=== PATIENT | female | born 1955 | race Caucasian/White ===

== ENCOUNTER → 2017-06-19 | Day surgery (SDC) | payer OTHER ==
[~2017-06-19] VITALS: Ht 162.6 cm; Wt 112.1 kg
[~2017-06-19] MED LIST: BACITRACIN1 PKT TOP; BIOTIN1 M1 PO; CALCIUM CARBON600 MG PO; CARDIZEM CD (T240 MG PO; CELEBREX200 MG PO; COLACE100 MG PO; DILAUDID 2MG(HYD2 MG PO; DILTIAZEM 24HR240 MG PO; DRISDOL 5050000 UNIT PO; HYDRODIURIL12.5 MG PO; MIRALAX17 GM PO; NAPROSYN500 MG PO; NAPROXEN SODIU550 MG PO; NORCO 5-325 TA1 EACH PO; PAXIL40 M1 PO; TOPROL XL 5050 MG PO; TRAMADOL HCL50 MG PO; TYLENOL EXTRA500 MG PO; XARELTO10 MG PO
--- NOTE | ~2017-06-19 | OR ---
PATIENT'S NAME: JERRICA CARTER [facility] AGE: 62 Y [address] ROOM: [place] [id number] LOCATION: [facility] [place] ADMIT DATE: 06/19/2017 OR/Procedure Report DISCHARGE DATE: FAMILY PHYSICIAN: Jayjay Mireles MD ATTENDING PHYSICIAN: BESSIE LOPEZ SURGEON: Bessie Lopez MD FASHION SHOW DIRECTOR: Heriberto Navarro PA-C. DATE OF PROCEDURE: 06/19/2017 PREOPERATIVE DIAGNOSIS: Right intra-articular distal radius fracture with displacement, angulation and dorsal comminution. POSTOPERATIVE DIAGNOSIS: Right intra-articular distal radius fracture with displacement, angulation and dorsal comminution. PROCEDURE: 1. Open reduction and internal fixation of right intra-articular distal radius fracture. 2. Use of intraoperative fluoroscopy, less than 1 hour. ANESTHESIA: Peripheral nerve block and sedation. TOURNIQUET: Right upper extremity 250 mmHg. ESTIMATED BLOOD LOSS: Minimal. FLUIDS: See Anesthesia report. SPECIMEN: None. COMPLICATIONS: None. DISPOSITION: Stable in PACU. COUNTS: All counts correct. IMPLANTS: Include Synthes right distal radius periarticular locking plate and screws. INDICATIONS: Ms Carter is a pleasant 62-year-old, [id number] female, who underwent the noted procedures above. The risks, benefits, and alternatives pursuing surgical intervention were discussed the patient in detail. She elected to proceed with surgery. I marked the patient's right upper extremity indicating correct surgical site. Anesthesia was consulted for their perioperative evaluation the patient. PATIENT'S NAME: JERRICA CARTER [facility] AGE: 62 Y [address] ROOM: [place] [address] LOCATION: [facility] [place] ADMIT DATE: 06/19/2017 OR/Procedure Report DISCHARGE DATE: FAMILY PHYSICIAN: Jayjay Mireles MD ATTENDING PHYSICIAN: BESSIE LOPEZ OPERATIVE REPORT IN DETAIL: The patient was brought from the holding area the operating room. A time-out was performed. An anesthetic was administered. Perioperative antibiotics were also administered for prophylactic purposes. The right upper extremity was then prepped and draped in a sterile fashion. I turned my attention the right wrist. An Esmarch was used to exsanguinate the limb. The tourniquet was inflated to 250 mmHg. I turned my attention to the right wrist. Using a 15 blade knife, I made a trans-FCR incision to access the volar aspect of the wrist in the distal radius. The skin incision was carried through skin, subcutaneous tissue, down to the FCR through the fashion to the pronator quadratus muscle. I incised in the left radial flap. I used a wood handle elevator to clean the bone and debride the fracture site. I then performed a closed reduction using intraoperative fluoroscopy. I was able to reduce the fracture. There was a fair amount of dorsal comminution and split intra- articularly that was subsequently reduced. I then placed a selected plate, placed it in the appropriate position and pinned it provisionally. I confirmed its position in my reduction fluoroscopically. Again, beginning with the distal into the plate, I drilled for, measured, and placed a compression screw to compress the plate to the bone. I then drilled for, measured, and placed two variable angle locking screws to achieve additional fixed angle fixation distally. Once I achieved distal fixation, I turned my attention to the proximal portion of plate. I drilled for, measured, and placed a compression screw in the oblong hole. I used this as a reduction tool to restore the radial of the volar tilt. I confirmed this fluoroscopically. I drilled for, measured, and placed 2 more screws to screw holes in the shaft of the plate to achieve 6 cortices of fixation in total. I turned my attention back to the distal row of the plate. I drilled for, radial styloid screw to address the intra-articular fragment. I drilled for, measured, and placed a screw, and the reduction was well-maintained. Final fluoroscopic images revealed evidence of a successful open reduction and internal fixation of right distal radius fracture The wound was then copiously irrigated with normal sterile saline solution. I used 0 Vicryl suture to approximate the pronator quadratus over the plate. I then used 2-0 Vicryl and 3-0 Vicryl suture to approximate the subcutaneous tissue. Prineo was used to approximate the skin. Once the Prineo was dried, the tourniquet was let down. The hand reperfused. PATIENT'S NAME: JERRICA CARTER [facility] AGE: 62 Y [address] ROOM: [place] [id number] LOCATION: [facility] [place] ADMIT DATE: 06/19/2017 OR/Procedure Report DISCHARGE DATE: FAMILY PHYSICIAN: Jayjay Mireles MD ATTENDING PHYSICIAN: BESSIE LOPEZ Sterile dressing was placed in the form of Xeroform, followed by 4x4, Webril, and a well-padded splint. The patient enters the operating table onto the stretcher and brought to recovery room in stable condition. There were no intraoperative complications noted. Of note, my PA, Heriberto Navarro PA-C, played an integral role in the intraoperative care of this patient. This included preoperative positioning, intraoperative expert retraction, and closing and splinting functions. IMPRESSION: The patient is status post the noted procedures above. PLAN: The patient will be nonweightbearing on the right upper extremity. She will be instructed to rest, ice, and elevate the arm going forward. She will be maintained in a splint. Postoperative pain control for Percocet and IV morphine as needed for pain in the PACU. She does have a nerve block in place. She will be discharged home from the PACU, provided she meets PACU discharge criteria. She will follow up in the office in 2 weeks for first postoperative visit. MD MINERVA MACKD/modl /[id number] d: 06/19/17 1604 t: 06/19/17 1723, OPERATIVE SUMMARY
== END | disposition disaster alternative care site (69) ==
LOC: GPOC 06-18 16:00 → GSDC 10:27 → GPOC 16:00
PROC: 0PSH04Z Reposition Right Radius with Internal Fixation Device, Open Approach (ICD-10-PCS; principal; 2017-06-19)
DX: S52.571A Other intraarticular fracture of lower end of right radius, initial encounter for closed fracture (principal); I12.9 Hypertensive chronic kidney disease with stage 1 through stage 4 chronic kidney disease, or unspecified chronic kidney disease; N18.3 Chronic kidney disease, stage 3 (moderate); M54.5 Low back pain; M19.029 Primary osteoarthritis, unspecified elbow; Z79.899 Other long term (current) drug therapy; E78.5 Hyperlipidemia, unspecified; F41.9 Anxiety disorder, unspecified; I48.91 Unspecified atrial fibrillation; Z87.01 Personal history of pneumonia (recurrent); Z90.49 Acquired absence of other specified parts of digestive tract; Z90.710 Acquired absence of both cervix and uterus; Z98.890 Other specified postprocedural states; W19.XXXA Unspecified fall, initial encounter
CPT/HCPCS: C1713; J0690; J2001; J2250; J7030